=== PATIENT | male | born 1995 | race Caucasian/White ===

== ENCOUNTER 2018-01-11 22:56 | Observation (INO) | payer OTHER ==
[~2018-01-11] VITALS: Ht 177.8 cm; Wt 77.3 kg
[2018-01-12 01:24] LABS: HEMATOCRIT 34.7 % (38.0-50.0); HEMOGLOBIN 12.8 G/DL (12.5-16.6); MCH 31.4 PG (29.0-34.0); MCHC 36.9 G/DL (30.0-36.0); PLATELET COUNT 169 K/uL (156-360); RBC DIS.WIDTH-CV 12.4 % (11.8-14.6); RBC DIS.WIDTH-SD 37.7 % (39-53); RED BLOOD COUNT 4.08 M/uL (4.00-5.50); WHITE BLOOD COUNT 12.7 K/uL (4.1-10.2)
[2018-01-12 01:35] LABS: CHLORIDE 107 mEq/L (99-109); POTASSIUM 3.4 mEq/L (3.7-5.4); SODIUM 137 mEq/L (136-147)
[2018-01-12 01:37] LABS: GLUCOSE 101 mg/dL (70-99)
[2018-01-12 01:41] LABS: CREATININE 0.9 mg/dL (0.6-1.3); GFR ESTIMATE (CALCULATED) > 59 mL/min/ (58.99-99999)
[2018-01-12 01:42] LABS: UREA NITROGEN (BUN) 20 mg/dL (9-23)
[2018-01-12 03:03] LABS: ALBUMIN 4.2 g/dL (3.2-4.8)
[2018-01-12 03:06] LABS: TOTAL PROTEIN 6.1 g/dL (6.4-8.3)
[2018-01-12 03:08] LABS: TOTAL BILIRUBIN 1.2 mg/dL (0.0-1.0)
[2018-01-12 03:09] LABS: ALKALINE PHOSPHATASE 65 IU/L (3-129)
[2018-01-12 03:11] LABS: AST (GOT) 32 IU/L (2-34); DIRECT BILIRUBIN 0.5 mg/dL (0.0-0.3)
[2018-01-12 03:12] LABS: ALT (GPT) 27 IU/L (3-49); LIPASE 53 U/L (1.0-51.0)
[2018-01-12 04:22] VITALS: BP 124/68
[2018-01-12 08:27] VITALS: BP 118/66
[2018-01-12] MEDS ORDERED: TRAMADOL HCL50 MG PO (12:59)
[2018-01-12 16:26] VITALS: BP 119/71
== END 2018-01-12 17:18 | disposition home or self-care (01) ==
LOC: EME 22:56 → EDOF 01-12 03:27 → 3EAST 01-12 03:27 → ENRESERV 01-12 03:29 → 3EAST 01-12 03:59
PROVIDERS: Emergency Medicine
DX: S27.0XXA Traumatic pneumothorax, initial encounter (principal); S42.021A Displaced fracture of shaft of right clavicle, initial encounter for closed fracture; R04.2 Hemoptysis; S27.321A Contusion of lung, unilateral, initial encounter; S30.811A Abrasion of abdominal wall, initial encounter; Z87.891 Personal history of nicotine dependence; V86.59XA Driver of other special all-terrain or other off-road motor vehicle injured in nontraffic accident, initial encounter
CPT/HCPCS: 70450; 71046; 71260; 80048; 80076; 83690; 85027; 99281; 99285; G0378; J7030; J7120